=== PATIENT | female | born 1990 | race Caucasian/White ===

== ENCOUNTER 2018-04-16 00:44 | Outpatient (CLI) | payer BC ==
[2018-04-16 00:20] VITALS: BP 117/70
[~2018-04-16 00:44] MED LIST: INDOCIN25 MG PO; PEPCID20 MG PO; TRAMADOL HCL50 MG PO; ULTRACET1 TABLET PO
[2018-04-16] MEDS ORDERED: TRAMADOL HCL50 MG PO (01:06)
[2018-04-16] MEDS ORDERED: ZANTAC75 M1 PO (01:13)
[2018-04-16] MEDS ORDERED: ZOLOFT25 MG PO (01:14)
[2018-04-16] MEDS ORDERED: BENADRYL25 MG PO (01:14)
[2018-04-16] MEDS ORDERED: PROBIOTIC1 EAC1 PO (01:15)
[2018-04-16] MEDS ORDERED: PRENATAL TABLE1 EAC3 PO (01:15)
[2018-04-16 02:00] LABS: APPEARANCE CLEAR ((CLEAR)); BILIRUBIN NEGATIVE; BLOOD NEGATIVE; COLOR STRAW ((YELLOW)); GLUCOSE (STRIP) NEGATIVE; KETONES NEGATIVE; LEUKOCYTES SMALL; NITRITE NEGATIVE; PROTEIN (STRIP) NEGATIVE; SPECIFIC GRAVITY 1.008 (1.000-1.030); UROBILINOGEN 0.2 MG/DL (0.2-1.0)
[2018-04-16 02:02] LABS: BACTERIA RARE /HPF; EPITHELIAL CELLS 1+ /HPF; MUCUS NONE SEEN /LPF; RED BLOOD CELLS 0-5 /HPF (0-5); UCUL ADDED? NO; WHITE BLOOD CELLS 0-5 /HPF (0-5)
[2018-04-16 02:08] VITALS: BP 124/65
[2018-04-16 05:02] VITALS: BP 107/55
== END 2018-04-16 05:55 | disposition home or self-care (01) ==
LOC: LDRP-OP 00:44 → 2WEST 00:45
PROVIDERS: Nurse Practitioner
DX: O60.03 Preterm labor without delivery, third trimester (principal); O99.513 Diseases of the respiratory system complicating pregnancy, third trimester; J45.909 Unspecified asthma, uncomplicated; O99.353 Diseases of the nervous system complicating pregnancy, third trimester; G43.909 Migraine, unspecified, not intractable, without status migrainosus; M79.7 Fibromyalgia; O99.413 Diseases of the circulatory system complicating pregnancy, third trimester; I45.10 Unspecified right bundle-branch block; O99.343 Other mental disorders complicating pregnancy, third trimester; F90.9 Attention-deficit hyperactivity disorder, unspecified type; F41.9 Anxiety disorder, unspecified; F41.0 Panic disorder [episodic paroxysmal anxiety]; O26.893 Other specified pregnancy related conditions, third trimester; G89.29 Other chronic pain; Z90.2 Acquired absence of lung [part of]; Z3A.33 33 weeks gestation of pregnancy
CPT/HCPCS: 59025; 81003; 82731; G0378

== ENCOUNTER 2018-04-17 17:49 | Outpatient (CLI) | payer BC ==
[2018-04-17] VITALS (10 sets, daily range): BP systolic 88–125; BP diastolic 49–73
[~2018-04-17 17:49] MED LIST changes: +BENADRYL25 MG PO; +PRENATAL TABLE1 EAC3 PO; +PROBIOTIC1 EAC1 PO; +ZANTAC75 M1 PO; +ZOLOFT25 MG PO
[2018-04-18] VITALS (10 sets, daily range): BP systolic 101–122; BP diastolic 50–72
[2018-04-18 11:20] LABS: SOURCE URINE
[2018-04-18 12:25] LABS: BENZODIAZEPINES, URINE SCREEN Negative (200 ng/mL)
[2018-04-19 03:19] VITALS: BP 99/55
[2018-04-19 06:58] LABS: BASOPHIL (%) 0.2 % (0-1); EOSINOPHIL (%) 0.1 % (0-5); HEMATOCRIT 33.2 % (36.0-46.0); HEMOGLOBIN 11.1 G/DL (11.9-15.5); IMMATURE GRANULOCYTE (%) 0.6 % (0.0-0.7); LYMPHOCYTE COUNT 1.2 K/uL (1.0-2.8); MCH 29.7 PG (29.0-34.0); MCHC 33.4 G/DL (30.0-36.0); MCV 88.8 FL (83-99); MONOCYTE (%) 3.3 % (3-12); MONOCYTE COUNT 0.4 K/uL (0-0.8); NEUTROPHIL (%) 85.8 % (45-76); NEUTROPHIL COUNT 10.4 K/uL (1.8-6.4); PLATELET COUNT 209 K/uL (156-360); RBC DIS.WIDTH-CV 13.2 % (11.8-14.6); RBC DIS.WIDTH-SD 43.1 % (39-53); RED BLOOD COUNT 3.74 M/uL (3.80-5.20); WHITE BLOOD COUNT 12.1 K/uL (4.1-10.2)
[2018-04-19 07:21] VITALS: BP 114/66
[2018-04-19] MEDS ORDERED: NIFEDIPINE20 MG PO (09:41)
[2018-04-19 13:36] LABS: CHLAMYDIA TRACHOMATIS NEGATIVE; NEISSERIA GONORRHOEAE NEGATIVE
== END 2018-04-19 10:45 | disposition home or self-care (01) ==
LOC: LDRP-OP 17:49 → 2WEST 17:50 → LDRP-OP 07-05 06:10
PROVIDERS: Obstetrics & Gynecology Gynecology; Obstetrics & Gynecology Obstetrics
DX: O26.893 Other specified pregnancy related conditions, third trimester (principal); Z3A.33 33 weeks gestation of pregnancy; Z87.891 Personal history of nicotine dependence
CPT/HCPCS: 59025; 76805; 76818; 80306 90; 85025; 87081; 87086; 87491; 87591; 87653; G0378; J0595; J0702; J7120

== ENCOUNTER 2018-06-09 13:07 | Inpatient (IN) | payer BC ==
[2018-06-09] VITALS (9 sets, daily range): BP systolic 108–120; BP diastolic 59–83
[~2018-06-09] VITALS: Ht 170.2 cm; Wt 72.0 kg
[~2018-06-09 13:07] MED LIST changes: +NIFEDIPINE20 MG PO
[2018-06-09] MEDS ORDERED: TYLENOL325 M2 PO (14:19)
[2018-06-09 14:39] LABS: BASOPHIL (%) 0.4 % (0-1); EOSINOPHIL (%) 1.3 % (0-5); EOSINOPHIL COUNT 0.1 K/uL (0-0.3); HEMATOCRIT 34.1 % (36.0-46.0); HEMOGLOBIN 11.7 G/DL (11.9-15.5); IMMATURE GRANULOCYTE (%) 0.4 % (0.0-0.7); LYMPHOCYTE (%) 16.2 % (15-42); LYMPHOCYTE COUNT 1.6 K/uL (1.0-2.8); MCH 29.8 PG (29.0-34.0); MCHC 34.3 G/DL (30.0-36.0); MCV 86.8 FL (83-99); MONOCYTE (%) 7.4 % (3-12); MONOCYTE COUNT 0.7 K/uL (0-0.8); NEUTROPHIL (%) 74.3 % (45-76); NEUTROPHIL COUNT 7.3 K/uL (1.8-6.4); PLATELET COUNT 214 K/uL (156-360); RBC DIS.WIDTH-CV 13.7 % (11.8-14.6); RBC DIS.WIDTH-SD 43.6 % (39-53); RED BLOOD COUNT 3.93 M/uL (3.80-5.20); WHITE BLOOD COUNT 9.9 K/uL (4.1-10.2)
[2018-06-09 15:05] LABS: AMPHETAMINE NEGATIVE (500 ng/mL); BARBITURATES NEGATIVE (200 ng/mL); BENZODIAZEPINES NEGATIVE (150 ng/mL); BUPRENORPHINE NEGATIVE (10 ng/mL); COCAINE NEGATIVE (150 ng/mL); METHADONE NEGATIVE (200 ng/mL); METHAMPHETAMINE NEGATIVE (500 ng/mL); OPIATES (MORPHINE) NEGATIVE (100 ng/mL); OXYCODONE NEGATIVE (100 ng/mL); PHENCYCLIDINE NEGATIVE (25 ng/mL); PROPOXYPHENE NEGATIVE (300 ng/mL); THC CANNABINOIDS NEGATIVE (50 ng/mL); TRICYCLIC ANTIDEPRESSANTS NEGATIVE (300 ng/mL)
[2018-06-10] VITALS (38 sets, daily range): BP systolic 86–144; BP diastolic 47–92
[2018-06-10] MEDS ORDERED: IBUPROFEN800 MG PO (14:15)
[2018-06-11 07:09] VITALS: BP 110/56
[2018-06-11 15:15] VITALS: BP 98/54
[2018-06-11 22:14] VITALS: BP 102/59
[2018-06-12 07:45] VITALS: BP 122/75
[2018-06-12 16:00] VITALS: BP 141/76
[2018-06-12 21:15] VITALS: BP 109/54
[2018-06-12 22:45] VITALS: BP 135/80
[2018-06-13 07:28] VITALS: BP 126/77
[2018-06-13 10:36] VITALS: BP 136/87
[2018-06-13 15:35] VITALS: BP 137/77
[2018-06-13 20:26] VITALS: BP 136/77
[2018-06-13 23:00] VITALS: BP 123/68
[2018-06-14 07:43] VITALS: BP 129/75
[2018-06-14 15:48] VITALS: BP 121/76
== END 2018-06-14 17:14 | disposition home or self-care (01) | DRG 775 ==
LOC: LDRP-OP 13:07 → 2WEST 13:08 → LDRP-OP 17:24 → 2WEST 06-10 13:38 → LDRP-OP 07-05 11:09
PROVIDERS: Advanced Practice Midwife
DX: O70.1 Second degree perineal laceration during delivery (principal); O71.82 Other specified trauma to perineum and vulva; O69.2XX0 Labor and delivery complicated by other cord entanglement, with compression, not applicable or unspecified; O69.81X0 Labor and delivery complicated by cord around neck, without compression, not applicable or unspecified; O77.0 Labor and delivery complicated by meconium in amniotic fluid; G97.1 Other reaction to spinal and lumbar puncture; Y84.8 Other medical procedures as the cause of abnormal reaction of the patient, or of later complication, without mention of misadventure at the time of the procedure; Z3A.40 40 weeks gestation of pregnancy; Z37.0 Single live birth; M79.7 Fibromyalgia; G89.29 Other chronic pain; F32.9 Major depressive disorder, single episode, unspecified; G43.909 Migraine, unspecified, not intractable, without status migrainosus; O99.52 Diseases of the respiratory system complicating childbirth; J45.909 Unspecified asthma, uncomplicated; O99.344 Other mental disorders complicating childbirth; F41.0 Panic disorder [episodic paroxysmal anxiety]; F90.9 Attention-deficit hyperactivity disorder, unspecified type; M54.9 Dorsalgia, unspecified
CPT/HCPCS: 70450; 72125; 85025; C1755; G0378; J1100; J1885; J2405; J3010; J7120